=== PATIENT | female | born 2005 | race Caucasian/White ===

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

== ENCOUNTER 2025-02-19 10:19 | Emergency (ER) | payer OTHER, SELFPAY ==
[2025-02-19 10:19] VITALS: BP 132/80; PULSE 112; RESP 16; TEMP 36.6; O2SAT 96
--- NOTE | 2025-02-19 10:26 | ED.SKABFB ---
HPI - Skin/Abscess/Foreign Bdy General Chief complaint: Skin/Abscess/Foreign Body Stated complaint: stepped on a toothpick Time Seen by Provider: 02/19/25 10:26 Source: patient Mode of arrival: ambulatory Limitations: no limitations History of Present Illness HPI narrative: 19-year-old female presents to the ED she stepped on a tooth pick which pierced her right sole. no other injuries noted last tetanus vaccination 5 years ago MD complaint: foreign body Onset (ago): minute(s) ( 30 minutes ago) Tetanus up to date: no Location: R foot Quality: aching Pain Consistency: constant Relieving factors: none Associated symptoms: denies other symptoms Treatments prior to arrival: none Related Data Home Medications ?Medication ?Instructions ?Recorded ?Confirmed ?Last Taken ?Type norgestimate 0.18 mg/0.215mg/0.25 1 tablet PO Q24H 02/19/25 Unknown History mg-ethinyl estradiol 0.025 mg tablet ([id number]) Allergies Allergy/AdvReac Type Severity Reaction Status Date / Time No Known Allergies Allergy Verified 02/19/25 10:34 Review of Systems Review of Systems: All systems reviewed & are unremarkable except as noted in HPI and below Exam Narrative: vitals are stable Const: Orientation/consciousness: patient oriented x3 Limitations: no limitations HENMT: Head: normal to inspection Ears: external ears normal Face/Nose/Sinus: Normal external nose present Face and sinus: normal facial exam Mouth: Yes Normal oral and palatal mucosa present Throat: posterior oropharynx normal Eyes: Conjunctivae: conjunctivae normal Pupils: Equal, round and reactive pupils present EOM: EOMs intact bilaterally Direct Ophthalmoscopy: no photophobia Neck: Neck: normal visual inspection Chest: Chest palpation & inspection: normal inspection of the chest Resp: Effort & Inspection: normal respiratory effort Auscultation: clear to auscultation bilaterally Cardio: Rate: regular rate Rhythm: regular rhythm GI: GI Palp: Yes Soft to palpation Auscultation: normal bowel sounds Other: no tenderness/rigidity / rebound. : General: Yes no CVA tenderness Back/Spine/Pelvis: Back: no CVA tenderness Skin: General skin exam: normal color Rashes: no rashes Other: Toothpick embedded in right sole Neuro: General: patient oriented x3, moves all extremities, no meningeal signs, no focal motor deficits and CN's II-XI intact bilaterally Cranial nerves: Yes Nystagmus not present Speech: normal speech Extrem: General: normal to inspection ( foreign body/ toothpick piercing her right sole) Psych: Mental Status: mental status grossly normal Affect: normal affect Attitude: cooperative Course Course Emergency Course: foreign body right sole Vital Signs Vital signs: Vital Signs Temperature 36.6 C 02/19/25 10:19 Pulse Rate 112 H 02/19/25 10:19 Respiratory Rate 16 02/19/25 10:19 Blood Pressure 132/80 02/19/25 10:19 Pulse Oximetry 96 02/19/25 10:19 Oxygen Delivery Room Air 02/19/25 10:19 Temperature 36.6 C 02/19/25 10:19 Pulse Rate 112 H 02/19/25 10:19 Respiratory Rate 16 02/19/25 10:19 Blood Pressure 132/80 02/19/25 10:19 Pulse Oximetry 96 02/19/25 10:19 Oxygen Delivery Room Air 02/19/25 10:19 Procedures Foreign Body Removal Foreign Body #1: Foreign Body Removal Date: 02/19/25 Foreign Body Removal Time: 10:36 Site: right and other ( sole) Description of foreign body: other ( tooth pick) Sedation/Analgesia: none Technique: removal with forceps Confirmed by:: direct visualization Complications: none MDM - Skin/Abscess/Foreign Bdy MDM Narrative Medical decision making narrative: tooth pick right sole Differential Diagnosis Differential diagnosis: Likely abscess of skin or subcutaneous tissue Medical Records Attestation: I reviewed the patient's medical records. Discharge Plan Discharge Clinical Impression: Foreign body in foot, right Patient Disposition: Home Condition: Stable Instructions: Antibiotic Form, Puncture Wound (ED) Patient Language: [place] Prescriptions: New sulfamethoxazole-trimethoprim [Bactrim DS] 800-160 mg tablet 1 tablet PO Q12H Qty: 14 0RF No Action norgestimate-ethinyl estradiol [Nps-Ch-Azurzf] 0.18/0.215/0.25 mg-0.025 mg tablet 1 tablet PO Q24H Follow-up/Referrals: Jorge Bonilla MD [Primary Care Provider, Internal Medicine] Time of Disposition: 11:00
[2025-02-19] MEDS: TETANUS,DIPHTHERIA,AC PERTUSSIS ADULT 0.5 ML (ADACEL) IM (10:39)
== END 2025-02-19 11:00 | disposition home or self-care (01) ==
LOC: CHSED 10:50
PROVIDERS: Emergency Provider Internal Medicine Critical Care Medicine; PCP Family Medicine
DX: S91.341A Puncture wound with foreign body, right foot, initial encounter (principal); W45.8XXA Other foreign body or object entering through skin, initial encounter; Z23 Encounter for immunization
CPT/HCPCS: 90471; 90715; 99283